=== PATIENT | female | born 1955 | race African-American/Black ===

== ENCOUNTER → 2019-01-14 | Outpatient (CLI) | payer OTHER ==
[~2019-01-14] MED LIST: ATENOLOL 25MG T25 M1 PO; BACTRIM DS TAB1 EACH PO; BENTYL 20 MG TA20 M1 PO; HYDROCHLOROTHIA25 M2; HYDROCODONE-AP1 EAC6 PO; LOPRESSOR50 PO; MECLIZINE HCL25 M1; PREDNISONE50 MG PO; ZOFRAN ODT4 MG PO; ZOFRAN ODT4 MG SUBLING; ZOFRAN4 MG PO
== END ==
LOC: M.RAD 09:20
DX: Z12.31 Encounter for screening mammogram for malignant neoplasm of breast (principal)

== ENCOUNTER → 2019-01-19 | Outpatient (CLI) | payer OTHER ==
--- NOTE | 2019-01-21 16:05 | PATH ---
[address] [address] PATHOLOGY RPT PROCEDURE Name: VIVIANA ZARAGOZA Room: [facility] Juli.#: [id number] Admission: 01/19/19 Date of : 55 Discharge: Report #: [id number] Path Case #: [id number] [facility] Accession Number: [id number] . 01 Material submitted: . breast - LEFT BREAST CALCIFICATIONS. Modifiers: left . 01 Clinical history: . Left breast stereotactic biopsy for calcifications . 02 Diagnosis: Left breast calcifications, stereotactic biopsy: - Benign breast tissue with duct ectasia, fibrosis, mild chronic inflammation and abundant luminal and coarse stromal calcifications, negative for atypia. (See comment). . (KATHIA:mmhetal; 01/21/2019) QL/01/21/2019 . 02 Comment: Reviewed with Dr. Arturo Winters who agrees with the diagnosis. . (KATHIA:mml; 01/21/2019) . 02 Electronically signed: . Brent Dominguez MD, Pathologist NPI- [id number] . 01 Gross description: . Received in formalin labeled "Viviana Zaragoza, left breast calcifications," are multiple needle cores of yellow-ray fibrofatty tissue measuring 3.1 x 2.8 x 0.4 cm in aggregate dimensions. Additionally received in the same container is a blue plastic cassette, which is partially opened, containing a single needle core of yellow-ray fibrofatty tissue measuring 1.8 cm in length and 0.4 cm in diameter. The tissue in the cassette is transferred to cassette A1 and the remaining tissue is submitted in its entirety in cassettes A2 and A3. The cold ischemic time is 12 minutes. The total formalin fixation time is approximately 31 hours. (TSD; 01/19/2019) TOB/TOB . 02 Pathologist provided ICD-10: N60.42, N61.0 . 02 CPT . [id number] [place] [address] PATHOLOGY RPT PROCEDURE Name: VIVIANA ZARAGOZA MARIAH Room: [facility]#: [id number] Admission: 01/19/19 Date of : 55 Discharge: Report #: [id number] Path Case #: [id number] Specimen Comment: A courtesy copy of this report has been sent to Specimen Comment: [phone], , . Specimen Comment: Report sent to ,DR PRICE / DR CANDELARIA Performed at: [address], [place], [place] [id number] MD Hi Lan MD Phone: [phone] Performed at: 02 [facility] [address] [place], [place], [place] [id number] MD Brent Dominguez MD Phone: [phone]
== END | disposition home or self-care (01) ==
LOC: M.RAD 09:26
DX: N61.0 Mastitis without abscess (principal); N60.42 Mammary duct ectasia of left breast; N60.32 Fibrosclerosis of left breast; R92.1 Mammographic calcification found on diagnostic imaging of breast; Z79.899 Other long term (current) drug therapy; Z87.440 Personal history of urinary (tract) infections

== ENCOUNTER 2019-04-04 06:39 | Emergency (ER) | payer OTHER ==
[~2019-04-04] VITALS: Ht 167.6 cm; Wt 99.8 kg
[2019-04-04] MEDS ORDERED: HYDROCHLOROTHIA25 M2 PO (06:47)
[2019-04-04 07:26] VITALS: BP 154/61
== END 2019-04-04 07:27 | disposition home or self-care (01) ==
LOC: M.ERS 06:39
DX: S90.821A Blister (nonthermal), right foot, initial encounter (principal); S90.822A Blister (nonthermal), left foot, initial encounter; R60.0 Localized edema; I10 Essential (primary) hypertension; E78.5 Hyperlipidemia, unspecified; H91.09 Ototoxic hearing loss, unspecified ear; Z90.89 Acquired absence of other organs; X58.XXXA Exposure to other specified factors, initial encounter; Y93.89 Activity, other specified; Y92.89 Other specified places as the place of occurrence of the external cause; Y99.8 Other external cause status